=== PATIENT | male | born 1985 | race Caucasian/White ===

== ENCOUNTER 2020-10-21 21:04 | Emergency (ER) | payer SELFPAY ==
[~2020-10-21] VITALS: Ht 185.4 cm; Wt 122.7 kg
[2020-10-21 21:04] VITALS: BP 126/83
[2020-10-21] MEDS ORDERED: OMEP40CA4 PO (21:20)
[2020-10-21] MEDS ORDERED: LIDOCAINE 2% MDV 20ML VIAL SC ONE (23:00)
--- NOTE | 2020-10-21 23:23 | REPVR ---
PROCEDURE INFORMATION: Exam: XR Right Foot Exam date and time: 10/21/2020 11:06 PM Age: 35 years old Clinical indication: Injury or trauma; Fall; Laceration; Foot; Right; Foreign body involvement not specified; Additional info: Foot fell off golf cart TECHNIQUE: Imaging protocol: XR Right foot. Views: 3 or more views. COMPARISON: No relevant prior studies available. FINDINGS: Bones/joints: There is no fracture or dislocation of the right foot. The joint spaces and alignment are maintained. No arthropathy is noted. There is a posterior calcaneal spur at the insertion of the Achilles tendon, which is compatible with a right Achilles enthesopathy. Soft tissues: There is a soft tissue laceration involving the posteromedial aspect of the right heel with associated radiopaque foreign bodies measuring up to 5 mm. IMPRESSION: 1. No fracture or dislocation of the right foot. 2. Soft tissue laceration involving the posteromedial aspect of the right heel with associated radiopaque foreign bodies measuring up to 5 mm. Electronically signed by: Caleb Bennett On 10/21/2020 23:22:45 PM
[2020-10-22] MEDS ORDERED: CEPH500C PO (01:14)
== END 2020-10-22 01:46 | disposition home or self-care (01) ==
LOC: M ED 21:04
DX: S91.021A Laceration with foreign body, right ankle, initial encounter (principal); S91.321A Laceration with foreign body, right foot, initial encounter; X58.XXXA Exposure to other specified factors, initial encounter; Y92.833 Campsite as the place of occurrence of the external cause; Y93.9 Activity, unspecified; Y99.9 Unspecified external cause status; F10.10 Alcohol abuse, uncomplicated; K21.9 Gastro-esophageal reflux disease without esophagitis